=== PATIENT | female | born 1990 | race Two or more races ===

== ENCOUNTER 2022-05-28 00:37 | Emergency (ER) | payer MEDICAID ==
[~2022-05-28] VITALS: Ht 162.6 cm; Wt 113.6 kg
[2022-05-28 01:11] VITALS: BP 124/77
[2022-05-28 01:58] LABS: Basophils # (auto) 0.1 10 ^3/uL (0-0.2); Basophils % (auto) 0.5 % (0.0-2.0); Eosinophils # (auto) 0.1 10 ^3/uL (0-0.8); Eosinophils % (auto) 0.4 % (0.0-7.0); Hematocrit 38.2 % (36.0-46.0); Hemoglobin 12.4 g/dL (12.2-16.2); Lymphocytes # (auto) 2.3 10 ^3/uL (0.4-5.4); Lymphocytes % (auto) 12.4 % (10.0-50.0); Mean Corpuscular Hemoglobin 29.2 pg (28.0-32.0); Mean Corpuscular Hgb Conc. 32.5 g/dL (32.0-36.0); Monocytes % (auto) 5.3 % (0.0-12.0); Neutrophils # (auto) 14.9 10 ^3/uL (1.6-8.6); Neutrophils % (auto) 81.4 % (37.0-80.0); Red Blood Cells 4.24 10^6/uL (4.0-5.20); Red Cell Distribution Width 13.8 % (11.8-14.3); White Blood Cell 18.3 10^3/uL (4.4-10.8)
[2022-05-28 02:15] LABS: Albumin 3.2 g/dL (3.4-5.0); BUN/Creatinine Ratio 16.7; Calcium 8.8 mg/dL (8.5-10.1); Potassium 4.8 mmol/L (3.5-5.1)
[2022-05-28 02:18] LABS: Bilirubin, Total 0.3 mg/dL (0.2-1.0)
[2022-05-28] MEDS ORDERED: ONDANSETRON ODT 4 MG TAB PO ONE (07:45)
[2022-05-28] MEDS ORDERED: KETOROLAC TROMETH 60MG/2ML VIAL IM ONE (07:45)
[2022-05-28 07:50] LABS: Urine Bacteria NONE SEEN /hpf (None Seen); Urine Blood Negative /uL (Negative); Urine WBC 82 /hpf (0 - 5)
[2022-05-28] MEDS ORDERED: cefTRIAXone SOD 1,000 MG VL IM ONE (08:15)
[2022-05-28] MEDS ORDERED: IBUP800T27 PO (08:20)
[2022-05-28] MEDS ORDERED: BACDST PO (08:20)
== END 2022-05-28 08:52 | disposition home or self-care (01) ==
LOC: ER 00:39
DX: K80.80 Other cholelithiasis without obstruction (principal); N39.0 Urinary tract infection, site not specified; Z90.49 Acquired absence of other specified parts of digestive tract; Z79.1 Long term (current) use of non-steroidal anti-inflammatories (NSAID); Z79.899 Other long term (current) drug therapy
CPT/HCPCS: 36415; 76705; 80053; 81001; 83690; 85025; 96372; 99284; J0696; J1885; Q0162